=== PATIENT | female | born 1975 | race Caucasian/White ===

== ENCOUNTER 2018-04-18 12:16 | Emergency (ER) | payer MEDICAID, OTHER, SELFPAY ==
[~2018-04-18] VITALS: Ht 170.2 cm; Wt 64.0 kg
[2018-04-18 13:08] LABS: MICROSCOPIC AUTO
[2018-04-18 13:23] LABS: CULTURE INDICATED? YES
--- NOTE | 2018-04-18 13:39 | NUR ---
PT AMBULATED FROM LOBBY TO ROOM.
[2018-04-18] MEDS ORDERED: DEXAMETHASONE 4 MG TABLET PO ONE (14:00)
[2018-04-18] MEDS ORDERED: CEFTRIAXONE 1,000 MG IM ONE (14:00)
[2018-04-18] MEDS ORDERED: LIDOCAINE-MPF 1%, 2ML ONE (14:02)
[2018-04-18] MEDS ORDERED: CEFTRIAXONE 1,000 MG ONE (14:02)
[2018-04-18] MEDS ORDERED: DEXAMETHASONE 4 MG TABLET ONE (14:02)
[2018-04-18 14:21] VITALS: BP 128/82
== END 2018-04-18 14:23 | disposition home or self-care (01) ==
LOC: ED 14:18
DX: N30.01 Acute cystitis with hematuria (principal); J02.0 Streptococcal pharyngitis
CPT/HCPCS: 81001; 87077; 87086; 87186; 87880; 96372; 99283; J0696